=== PATIENT | male | born 1980 | race African-American/Black ===

== ENCOUNTER 2017-04-07 14:00 | Emergency (ER) | payer SELFPAY ==
[2017-04-07] MEDS ORDERED: Ondansetron HCl/PF 4 MG/2 ML Vial ONE (15:10)
[2017-04-07 15:19] LABS: Hemoglobin 16.9 g/dL (14.0-18.0); Mean Corpuscular HGB CONC 34.1 g/dL (32.0-36.0); Mean Corpuscular Hemoglobin 30.7 pg (27.0-31.0); Mean Corpuscular Volume 90.1 fl (80.0-94.0); Mean Platelet Volume 7.6 fL (7.4-10.4); Platelet Count 248 thou/uL (130-400); RBC Distribution Width 12.4 % (11.5-14.5); Red Blood Cell (RBC) Count 5.49 mill/uL (4.70-6.10); White Blood Cell (WBC) Count 21.3 thou/uL (4.8-10.8)
[2017-04-07 15:33] LABS: Band 12 % (5-11); Lymphocytes 6 % (21-51); MDiff Complete? YES; Monocytes 6 % (0-10); Neutrophil 72 % (42-75); PLT Morphology Comment Appears Adequate; RBC Morphology Normal; Reactive Lymphocytes 2 % (0-10); Vacuoles SLIGHT
[2017-04-07 15:39] LABS: ALT (SGPT) 9 U/L (8-55); AST (SGOT) 15 U/L (5-34); Albumin 4.2 g/dL (3.5-5.0); Alkaline Phosphatase 89 U/L (40-150); Anion Gap 14 mmol/L (10-20); BUN (Urea Nitrogen) 8 mg/dL (8.9-20.6); Bilirubin, Total 0.4 mg/dL (0.2-1.2); Calc. Creatinine Clearance 0 mL/min (70-130); Calcium 10.1 mg/dL (7.8-10.44); Carbon Dioxide 25 mmol/L (22-29); Chloride 100 mmol/L (98-107); Estimated GFR-MDRD 89; Globulin 4.4 g/dL (2.4-3.5); Glucose 119 mg/dL (70-105); Lipase 12 U/L (8-78); Protein, Total 8.6 g/dL (6.0-8.3); Sodium 135 mmol/L (136-145)
[2017-04-07 15:45] LABS: Bilirubin Negative (Negative); Blood, Urine Moderate (Negative); Clarity CLEAR (Clear); Glucose, Urine (Dipstick) Negative (Negative); Leukocyte Negative (Negative); Nitrite Negative (Negative); Protein, Urine (Dipstick) 100 mg/dL (Neg-Trace); Specific Gravity, Urine 1.019 (1.002-1.036); Urobilinogen 0.2 mg/dL (0.2-1.0); pH, Urine 5.5 (5.0-9.0)
[2017-04-07 15:48] LABS: Bacteria/HPF None Seen HPF (None Seen); Hyaline Casts/LPF 0-3 HYALINE CAST LPF (0-3 Hyaline); RBC/HPF 0-3 HPF (0-3); Squamous Epithelial 0-3 HPF (0-3); WBC/HPF 0-3 HPF (0-3)
== END 2017-04-07 18:20 | disposition home or self-care (01) ==
LOC: ERS 14:00
DX: E86.0 Dehydration (principal); R11.2 Nausea with vomiting, unspecified; R19.7 Diarrhea, unspecified; F17.210 Nicotine dependence, cigarettes, uncomplicated
CPT/HCPCS: 80053; 81003; 81015; 83690; 85025; 93005; 96361; 96372; 96374; J2405

== ENCOUNTER 2017-04-12 21:22 | Inpatient (IN) | payer SELFPAY ==
[~2017-04-12 21:22] MED LIST: ISOVUE-370 76%-LOCM 1 ML ONE; Iopamidol 370 76% 50 ML VIAL FS ONE
[2017-04-12] MEDS ORDERED: Ondansetron HCl/PF 4 MG/2 ML Vial ONE (21:59)
[2017-04-12 22:14] LABS: Hemoglobin 16.5 g/dL (14.0-18.0); Mean Corpuscular HGB CONC 34.7 g/dL (32.0-36.0); Mean Corpuscular Hemoglobin 30.8 pg (27.0-31.0); Mean Corpuscular Volume 88.8 fl (80.0-94.0); Mean Platelet Volume 7.3 fL (7.4-10.4); Platelet Count 296 thou/uL (130-400); RBC Distribution Width 12.6 % (11.5-14.5); Red Blood Cell (RBC) Count 5.36 mill/uL (4.70-6.10); White Blood Cell (WBC) Count 14.1 thou/uL (4.8-10.8)
--- NOTE | 2017-04-12 22:17 | RAD ---
FRONTAL VIEW CHEST SERIES 04/12/17 INDICATION: Fever. COMPARISON: 05/14/15. FINDINGS: The lungs are clear. There is no effusion or pneumothorax. The cardiac silhouette is within normal li mits in size for portable technique. IMPRESSION: No focal consolidation. POS: [facility]
[2017-04-12 22:22] LABS: ALT (SGPT) 15 U/L (8-55); AST (SGOT) 21 U/L (5-34); Albumin 4.1 g/dL (3.5-5.0); Alkaline Phosphatase 71 U/L (40-150); Anion Gap 11 mmol/L (10-20); BUN (Urea Nitrogen) 13 mg/dL (8.9-20.6); Bilirubin, Total 0.7 mg/dL (0.2-1.2); CK (CPK) 175 U/L (30-200); Calc. Creatinine Clearance 0 mL/min (70-130); Calcium 9.6 mg/dL (7.8-10.44); Carbon Dioxide 26 mmol/L (22-29); Chloride 98 mmol/L (98-107); Estimated GFR-MDRD 65; Globulin 4.4 g/dL (2.4-3.5); Glucose 114 mg/dL (70-105); Lipase 52 U/L (8-78); Potassium 3.2 mmol/L (3.5-5.1); Protein, Total 8.5 g/dL (6.0-8.3); Sodium 132 mmol/L (136-145)
[2017-04-12 22:26] LABS: Band 5 % (5-11); Lymphocytes 17 % (21-51); MDiff Complete? YES; Monocytes 26 % (0-10); Neutrophil 52 % (42-75)
[2017-04-12] MEDS ORDERED: Acetaminophen 500 MG TAB ONE ×2 (22:47→22:48)
[2017-04-12] MEDS ORDERED: Ibuprofen 800 MG TAB ONE (22:47)
[2017-04-12 23:24] LABS: Acetaminophen Less than 6.0 mcg/mL (10.0-30.0); Alcohol Less than 10 mg/dL (Less than 10); Salicylate Less than 8.0 mg/dL (15.0-30.0)
[2017-04-13 01:01] LABS: Bilirubin Negative (Negative); Blood, Urine Negative (Negative); Clarity CLEAR (Clear); Glucose, Urine (Dipstick) Negative (Negative); Leukocyte Negative (Negative); Nitrite Negative (Negative); Protein, Urine (Dipstick) Negative (Neg-Trace); Specific Gravity, Urine 1.025 (1.002-1.036); Urobilinogen 0.2 mg/dL (0.2-1.0); pH, Urine 5.5 (5.0-9.0)
[2017-04-13 01:12] LABS: Amphetamine Not Detected (NotDetected); Barbiturates Screen Not Detected (NotDetected); Benzodiazepine Screen Not Detected (NotDetected); Cocaine Metabolite Screen Detected (NotDetected); Medtox Control Line Valid? VALID (VALID); Medtox Reader # READER 4; Methadone Not Detected (NotDetected); Methamphetamine Not Detected (NotDetected); Opiate Screen Detected (NotDetected); Oxycodone Screen Not Detected (NotDetected); Phencyclidine (PCP) Detected (NotDetected); THC/Cannabinoid Screen Detected (NotDetected); Tricyclic Screen Not Detected (NotDetected)
[2017-04-13 02:05] VITALS: BMI 22.6
[2017-04-13] MEDS ORDERED: Sodium Chloride 0.9% 1,000 ML IV SCH ×2 (02:09→07:02)
[2017-04-13] MEDS ORDERED: Ondansetron HCl/PF 4 MG/2 ML Vial IVP PRN ×2 (02:09→07:02)
[2017-04-13] MEDS ORDERED: Acetaminophen 325 MG TAB PO PRN (02:09)
[2017-04-13] MEDS ORDERED: Ondansetron ODT 4 MG TAB SL PRN (02:09)
[2017-04-13] MEDS ORDERED: Artificial Tears 18 DROP/0.9 ML EA EYE PRN (07:02)
[2017-04-13] MEDS ORDERED: Eucerin (Mineral Oil/Petrolatum,White) 30 gm Jar TOP PRN (07:02)
[2017-04-13] MEDS ORDERED: hydrALAZINE 20 MG/ML VIAL SLOW IVP PRN (07:02)
[2017-04-13] MEDS ORDERED: Sodium Chloride 0.65% Nasal 44 ML BOT EA NARE PRN (07:02)
[2017-04-13] MEDS ORDERED: Chloraseptic Spray 180 ml Bottle PO PRN (07:02)
[2017-04-13] MEDS ORDERED: Zolpidem Tartrate 5 MG TAB PO PRN (07:02)
[2017-04-13] MEDS ORDERED: Mag-Al 1200 mg/1200 mg/30 ML UDCUP PO PRN (07:02)
[2017-04-13] MEDS ORDERED: Ondansetron ODT 4 MG TAB PO PRN (07:02)
[2017-04-13] MEDS ORDERED: Loratadine 10 MG TAB PO PRN (07:02)
[2017-04-13] MEDS ORDERED: Diabetic Tussin 200 MG/10 ML UDCUP PO PRN (07:02)
--- NOTE | 2017-04-13 07:30 | CT ---
ABDOMEN AND PELVIC CT WITH CONTRAST: INDICATION: Diarrhea for 1 week with fever, vomiting, and lower abdominal pain. FINDINGS: There is prominent distention of the urinary bladder. Correlate clinically. The colon is diffusely unopacified including the cecal apex. The appendix is difficult to reliably visualize. The contrast -opacified small bowel appears physiologically distended. No definite acute abnormality of the solid abdominal organs. No disseminated free air. There is mild vascular calcification. No consolidatio n or effusion at the lung base. Osseous structures are intact. IMPRESSION: Limited evaluation of the appendix as discussed above due to unopacified bowel from this region as we ll as prominent mass effect from markedly distended urinary bladder. Clinical correlation is, theref ore, essential. If necessary imaging followup may be obtained. POS: [facility]
[2017-04-13 07:48] LABS: Free T4 (Free Thyroxine) 0.95 ng/dL (0.70-1.48)
[2017-04-13] MEDS: Famotidine 20 MG TAB PO SCH ×2 (08:33→20:06)
[2017-04-13] MEDS: Loperamide HCl 2 MG CAP PO PRN ×2 (08:33→16:19)
[2017-04-13] MEDS: Enoxaparin Sodium 40 MG/0.4 ML SYRINGE SC SCH (08:34)
[2017-04-13] MEDS: D5 1/2 NS w/20 mEq KCL 1,000 ML IV SCH ×3 (08:35→19:47)
[2017-04-13] MEDS ORDERED: FLU VACC QS2017-18 36 mo. & older 0.5 ML SYRINGE IM ONE (09:00)
[2017-04-13] MEDS ORDERED: Morphine 5 MG/ML SYRINGE SLOW IVP PRN (10:14)
--- NOTE | 2017-04-13 12:02 | HP ---
PRIMARY CARE PHYSICIAN: [facility] call admission. REASON FOR ADMISSION: Acute gastroenteritis, acute kidney failure, sepsis, acute urinary retention. HISTORY OF PRESENT ILLNESS: A 36-year-old -[place] male, who came to emergency room for eval uation of nausea, vomiting, and diarrhea for about 1 week. He was also complaining of lower abdomina l pain. The patient was also having difficulty urination. He had several diarrhea, which was liquid y, without any pus or blood. He was feeling weak, dizzy, and tired. He was also having high-grade f ever. He denies any chills or rigor. He denies any flu-like symptoms. He denies any hematochezia o r melena. He denies any hematemesis. He denies any cough, shortness of breath, chest pain, palpitat ion. In the emergency room, he was tachycardic. He was having a temperature maximum 106.6 rectally and he was saturating normal. Routine blood tests showed acute kidney failure, leukocytosis with bandemia. He was also found with acute kidney failure and his urine drug screen was positive for cocaine, cannabinoids, phencyclidine, and opiates. Serum drug screen was unremarkable. This patient was admitted to telemetry floor, his fever subsided in the morning, but he was not able to pee. He was also having lower abdominal discomfort, and when we did a bladder scan, he had signif icant amount of urine in his bladder, and after doing in and out catheter, almost 1.4 liter urine cam e out. The patient also had CT of the abdomen and pelvis, which was unremarkable other than bladder distention. Chest x-ray was also unremarkable. Stool study was obtained and that came back positive for Clostrid ium difficile antigen positive and cryptosporidium positive. Patient was admitted for further evalua tion and treatment. ALLERGIES: No known drug allergies. CURRENT HOME MEDICATIONS: Bentyl 10 mg 4 times daily p.r.n., Zofran 4 mg q.6 hourly p.r.n. REVIEW OF SYSTEMS: The following complete review of systems was negative, unless otherwise mentioned in the HPI or below: Constitutional: Weight loss or gain, ability to conduct usual activities. Sk in: Rash, itching. Eyes: Double vision, pain. ENT/Mouth: Nose bleeding, neck stiffness, pain, te nderness. Cardiovascular: Palpitations, dyspnea on exertion, orthopnea. Respiratory: Shortness of breath, wheezing, cough, hemoptysis, fever, or night sweats. Gastrointestinal: Poor appetite, abdo gisella pain, heartburn, nausea, vomiting, constipation, or diarrhea. Genitourinary: Urgency, frequen cy, dysuria, nocturia. Musculoskeletal: Pain, swelling. Neurologic/Psychiatric: Anxiety, depressi on. Allergy/Immunologic: Skin rash, bleeding tendency. Please see my HPI for pertinent positives a nd negatives. All other review of systems reviewed and negative except as mentioned in the HPI. PAST MEDICAL HISTORY: Patient denies any previous medical history. PAST SURGICAL HISTORY: Left ankle and left hand surgery. PAST PSYCHIATRIC HISTORY: Reviewed and negative. SOCIAL HISTORY: Patient drinks alcohol every week. He smokes about half-pack per day. He also abus es cocaine, marijuana, phencyclidine periodically. FAMILY HISTORY: No strong family history of premature coronary artery disease, stroke, or cancer. EMERGENCY ROOM COURSE: Patient is given 3 liters of IV fluids, Motrin 800 mg, Tylenol 1 gram, morphi ne 4 mg, and Zofran 4 mg. PHYSICAL EXAMINATION: VITAL SIGNS: On arrival, blood pressure 97/54, pulse 135, respiratory rate 20, temperature 106.6 rec tally, saturation 97% on room air, weight 68 kilograms. GENERAL: The patient is currently afebrile, in mild distress due to abdominal pain, diarrhea, tachyc ardic. HEENT: Head normocephalic, atraumatic. Eyes: Pupils round and reactive to light. Extraocular musc les intact. ENT: Oropharynx within normal limits. Dry mucous membranes, no oral lesions, no pharyn geal erythema, no exudate. NECK: Supple, no JVD, no thyromegaly, no carotid bruit. No lymph nodes, no meningeal signs of irrit ation. LUNGS: Clear to auscultation without any rhonchi or rales. CARDIAC: S1, S2 regular, tachycardia, no murmur, no gallop, no rub. ABDOMEN: Diffusely tender, predominantly in the lower abdomen, and bladder palpable. No organomegal y, no mass, no peritoneal sign, and abdominal sounds present. BACK EXAMINATION: Unremarkable, no CVA tenderness. EXTREMITIES: Upper extremities, passive movement of all joints are normal. Lower extremities, no ed zuleika. Good peripheral pulsation. SKIN: Patient has multiple tattoos, but no rash. PSYCHIATRIC: Normal affect. HEMATOLOGICAL SYSTEM: No lymphadenopathy. NEUROLOGIC: Nonfocal examination. The patient moves all 4 limbs. Plantar bilateral flexor. SIGNIFICANT LABORATORY DATA: EKG showing sinus tachycardia, LVH, left atrial enlargement. Chest x-r ay, based on my review, no acute cardiopulmonary process. CT of the abdomen and pelvis with contrast showed a distended urinary bladder. CBC: WBC 14.1, hemoglobin 16.5, platelet 296 with bandemia. BMP: Sodium 132, potassium 3.2, chlori de 98, carbon dioxide 26, anion gap 11, BUN 13, creatinine 1.47, glucose 114, calcium 9.6. Lactic ac id 1.4. LFT: AST 21, ALT 15, alkaline phosphatase 71, albumin 4.1, lipase 52. TSH 0.2110, free T3 1.15, free T4 of 0.95. Urinalysis normal. Urine drug screen positive for opiates, phencyclidine, co erin, and marijuana. Serum drug screen unremarkable. Chest x-ray, based on my review, no acute car diopulmonary process. ASSESSMENT AND PLAN: 1. Sepsis, source of infection is likely enteritis and as per stool study, patient has Cryptosporidi um positive and Clostridium difficile antigen positive. We will target to treat both problem with or al nitazoxanide and Flagyl 500 mg IV q.8 hourly. The patient will be given IV fluids with dextrose NS with KCl 800 mL per hour. 2. Acute kidney failure. The patient is dehydrated. The patient has a significant amount of diarrh ea that is contributing to his diarrhea. The patient will be given IV fluid and will repeat BMP jovanni rrow. We will avoid nephrotoxin agents. 3. Hyponatremia and hypokalemia. Patient will be given IV fluid with potassium and we will repeat B MP tomorrow. 4. CQ thyroid syndrome. Patient has low TSH and low free T3, but T4 is normal. Most likely this is sick euthyroid syndrome. Patient will need repeat testing after improvement from current condition. 5. Acute urinary retention. The patient was refusing Pickens catheterization and that is why we did i n and out catheter and 1.4 liter urine came out. We will monitor for any further urinary retention. If that does happen, then we will consult Urology and was put a Pickens catheter in. 6. Polysubstance abuse. Patient is given counseling to avoid smoking as well as to avoid alcohol ab use and other illicit drug abuse. Patient will be monitored on telemetry floor. 7. Cryptosporidium diarrhea. We will start nitazoxanide 500 mg p.o. b.i.d. 8. Clostridium difficile diarrhea. We will start Flagyl 500 mg IV q.8 hourly and Florastor 250 mg p .o. b.i.d. 9. Dehydration. Patient will be given IV fluid as ordered. 10. Pain control. We will use morphine p.r.n. basis for pain control. 11. Protein-calorie malnutrition, mild. We will check hepatitis profile and HIV to rule out any und erlying opportunistic infections. 12. Deep vein thrombosis prophylaxis. Lovenox 40 mg subcutaneously daily. 13. Gastrointestinal prophylaxis. Pepcid 20 mg p.o. b.i.d. 14. Code status: The patient is FULL CODE. Patient does not have a surrogate decision maker. He i s making decision by himself. Disposition and plan based on clinical course. We are expecting patient's stay in hospital more than 2 midnights. Plan of care discussed with the patient in detail.
[2017-04-13] MEDS: metroNIDAZOLE 500 MG in Premix Bag 1 BAG IVPB SCH ×2 (13:44→21:34)
[2017-04-13] MEDS: Acetaminophen 325 MG TAB PO PRN (13:52)
[2017-04-13] MEDS: HYDROcodone/Acetaminophen 5/325 mg Tablet PO PRN (20:09)
[2017-04-14] MEDS: HYDROcodone/Acetaminophen 5/325 mg Tablet PO PRN ×2 (02:14→17:48)
[2017-04-14] MEDS: D5 1/2 NS w/20 mEq KCL 1,000 ML IV SCH (02:20)
[2017-04-14] MEDS: metroNIDAZOLE 500 MG in Premix Bag 1 BAG IVPB SCH ×3 (05:09→22:07)
[2017-04-14 06:08] LABS: HBCM Index 0.06 S/CO (0-0.79); HBSAg Index 0.13 S/CO (0-0.99); Hep A IgM AB Non-Reactive (NonReactive); Hep A IgM S/CO 0.08 S/CO (0-0.79); Hep B Surf Ag Non-Reactive S/CO (NonReactive); Hep C IgG Ab Non-Reactive (NonReactive); Hep C Index 0.14 S/CO (0-0.79); Hepatitis B Core IGM Abs Non-Reactive (NonReactive)
[2017-04-14 06:10] LABS: Eosinophils 2 % (0-10); Hemoglobin 13.2 g/dL (14.0-18.0); Lymphocytes 35 % (21-51); MDiff Complete? YES; Mean Corpuscular HGB CONC 34.7 g/dL (32.0-36.0); Mean Corpuscular Hemoglobin 31.3 pg (27.0-31.0); Mean Corpuscular Volume 90.2 fl (80.0-94.0); Mean Platelet Volume 7.5 fL (7.4-10.4); Monocytes 28 % (0-10); Neutrophil 29 % (42-75); Platelet Count 237 thou/uL (130-400); RBC Distribution Width 12.5 % (11.5-14.5); Reactive Lymphocytes 6 % (0-10); White Blood Cell (WBC) Count 7.7 thou/uL (4.8-10.8)
[2017-04-14 06:31] LABS: ALT (SGPT) 13 U/L (8-55); AST (SGOT) 20 U/L (5-34); Albumin 3.2 g/dL (3.5-5.0); Alkaline Phosphatase 45 U/L (40-150); Anion Gap 8 mmol/L (10-20); BUN (Urea Nitrogen) 7 mg/dL (8.9-20.6); Bilirubin, Total 0.7 mg/dL (0.2-1.2); Calc. Creatinine Clearance 92 mL/min (70-130); Calcium 8.4 mg/dL (7.8-10.44); Carbon Dioxide 25 mmol/L (22-29); Chloride 106 mmol/L (98-107); Estimated GFR-MDRD Greater than 90; Globulin 2.9 g/dL (2.4-3.5); Glucose 103 mg/dL (70-105); Potassium 3.6 mmol/L (3.5-5.1); Protein, Total 6.1 g/dL (6.0-8.3); Sodium 135 mmol/L (136-145)
--- NOTE | 2017-04-14 09:26 | PDOC.PN ---
- Subjective Encounter Start Date: 04/14/17 Encounter Start Time: 08:00 -: old records requested/rev today feels better, last fever was yesterday evening, less diarrhoea, no abdominal pain, now able to void by himself. - Objective Resuscitation Status: Resuscitation Status FULL:Full Resuscitation MAR Reviewed: Yes Vital Signs & Weight: Vital Signs (12 hours) Temp Pulse Resp BP Pulse Ox 04/14/17 08:00 98.8 F 80 18 112/73 98 04/14/17 04:00 98.5 F 88 20 116/74 98 04/13/17 21:34 99.4 F Weight Admit Weight 148 lb 9.6 oz Weight 148 lb 9.6 oz I&O: 04/13/17 04/14/17 04/15/17 06:59 06:59 06:59 Intake Total 332 4617 Output Total 150 3800 Balance 182 817 Result Diagrams: 04/14/17 04:39 04/14/17 04:39 EKG Reviewed by me: Yes (nsr) Phys Exam - Physical Examination Constitutional: NAD HEENT: PERRLA, moist MMs, sclera anicteric Neck: no JVD, supple Respiratory: no wheezing, no rales, no rhonchi Cardiovascular: RRR, no significant murmur, no rub Gastrointestinal: soft, non-tender, no distention, positive bowel sounds Musculoskeletal: no edema, pulses present Neurological: non-focal, normal sensation, moves all 4 limbs Psychiatric: normal affect, A&O x 3 Skin: no rash, normal turgor Dx/Plan (1) Acute febrile illness Code(s): R50.9 - FEVER, UNSPECIFIED Status: Acute (2) Acute kidney failure Status: Resolved (3) Acute urinary retention Code(s): R33.8 - OTHER RETENTION OF URINE Status: Resolved (4) C. difficile diarrhea Code(s): A04.72 - ENTEROCOLITIS D/T CLOSTRIDIUM DIFFICILE, NOT SPCF RECUR Status: Acute (5) Cryptosporidial gastroenteritis Code(s): A07.2 - CRYPTOSPORIDIOSIS Status: Acute (6) Dehydration Code(s): E86.0 - DEHYDRATION Status: Resolved (7) Hypokalemia Code(s): E87.6 - HYPOKALEMIA Status: Resolved (8) Hyponatremia Code(s): E87.1 - HYPO-OSMOLALITY AND HYPONATREMIA Status: Resolved (9) Polysubstance abuse Code(s): F19.10 - OTHER PSYCHOACTIVE SUBSTANCE ABUSE, UNCOMPLICATED Status: Acute (10) Sepsis Code(s): A41.9 - SEPSIS, UNSPECIFIED ORGANISM Status: Acute - Plan cont current plan of care, plan discussed w/ family, continue antibiotics * DC IVF * continue Nitazoxanide and IV flagyl * DC Tele * Transfer to medical * medication reviewed as below * symptomatic treatment. * if afebrile for another 24 hours, then will consider discharge * stable and improving Review of Systems - Review of Systems Constitutional: negative: fever, chills, sweats, weakness, malaise, other ENT: negative: Ear Pain, Ear Discharge, Nose Pain, Nose Discharge, Nose Congestion, Mouth Pain, Mouth Swelling, Throat Pain, Throat Swelling, Other Respiratory: negative: Cough, Dry, Shortness of Breath, Hemoptysis, SOB with Excertion, Pleuritic Pain, Sputum, Wheezing Cardiovascular: negative: chest pain, palpitations, orthopnea, paroxysmal nocturnal dyspnea, edema, light headedness, other Gastrointestinal: negative: Nausea, Vomiting, Abdominal Pain, Diarrhea, Constipation, Melena, Hematochezia, Other Genitourinary: negative: Dysuria, Frequency, Incontinence, Hematuria, Retention , Other Musculoskeletal: negative: Neck Pain, Shoulder Pain, Arm Pain, Back Pain, Hand Pain, Leg Pain, Foot Pain, Other Skin: negative: Rash, Lesions, Guillermo, Bruising, Other - Medications/Allergies Allergies/Adverse Reactions: Allergies Allergy/AdvReac Type Severity Reaction Status Date / Time No Known Drug Allergies Allergy Verified 04/13/17 02:10 Medications: Current Medications Acetaminophen (Tylenol) 650 mg PO Q4H PRN PRN Reason: Headache/Fever or Pain Last Admin: 04/13/17 13:52 Dose: 650 mg Hydrocodone Bitart/Acetaminophen ([place] 5/325) 1 tab PO Q4H PRN PRN Reason: Moderate Pain (4-6) Last Admin: 04/14/17 02:14 Dose: 1 tab Al Hydroxide/Mg Hydroxide (Maalox) 30 ml PO Q6H PRN PRN Reason: Heartburn or Indigestion Artificial Tears (Tears Naturale) 0 drop EA EYE PRN PRN PRN Reason: Dry Eyes Enoxaparin Sodium (Lovenox) 40 mg SC 0900 [facility] Last Admin: 04/13/17 08:34 Dose: 40 mg Famotidine (Pepcid) 20 mg PO BID [facility] Last Admin: 04/13/17 20:06 Dose: 20 mg Guaifenesin (Robitussin Sf) 200 mg PO Q4H PRN PRN Reason: Cough Hydralazine HCl (Apresoline) 10 mg SLOW IVP Q4H PRN PRN Reason: Systolic BP > 180 Metronidazole 500 mg/ Device 100 mls @ 100 mls/hr IVPB Q8HR [facility] Last Admin: 04/14/17 05:09 Dose: 100 mls Loperamide HCl (Imodium) 2 mg PO PRN PRN PRN Reason: Diarrhea/Loose Stools Last Admin: 04/13/17 16:19 Dose: 2 mg Loratadine (Claritin) 10 mg PO DAILYPRN PRN PRN Reason: Sinus Symptoms Mineral Oil/White Petrolatum (Eucerin Cream) 0 gm TOP BIDPRN PRN PRN Reason: Dry Skin Morphine Sulfate (Morphine) 2 mg SLOW IVP Q4H PRN PRN Reason: Pain Nitazoxanide (Alinia) 500 mg PO BID [facility] Last Admin: 04/13/17 20:06 Dose: 500 mg Ondansetron HCl (Zofran Odt) 4 mg PO Q6H PRN PRN Reason: Nausea/Vomiting Last Admin: 04/13/17 08:33 Dose: 4 mg Ondansetron HCl (Zofran) 4 mg IVP Q6H PRN PRN Reason: Nausea/Vomiting Phenol (Chloraseptic [place] 180 Ml Bot) 0 ml PO PRN PRN PRN Reason: Sore Throat Sodium Chloride ([place] Nasal [place] 0.65%) 0 ml EA NARE QIDPRN PRN PRN Reason: Nasal Congestion Sodium Chloride (Flush - Normal Saline) 10 ml IVF Q12HR [facility] Last Admin: 04/13/17 20:07 Dose: Not Given Sodium Chloride (Flush - Normal Saline) 10 ml IVF PRN PRN PRN Reason: Saline Flush Zolpidem Tartrate (Ambien) 5 mg PO HSPRN PRN PRN Reason: Insomnia
[2017-04-14] MEDS: Enoxaparin Sodium 40 MG/0.4 ML SYRINGE SC SCH (11:10)
[2017-04-14] MEDS: Famotidine 20 MG TAB PO SCH ×2 (11:11→22:08)
[2017-04-14] MEDS: Acetaminophen 325 MG TAB PO PRN (12:04)
[2017-04-15 03:50] VITALS: BP 126/58; TEMP 98.4
[2017-04-15] MEDS: metroNIDAZOLE 500 MG in Premix Bag 1 BAG IVPB SCH (05:14)
[2017-04-15 06:24] LABS: HIV (1/2) Antibody/Antigen Non-Reactive (NonReactive)
--- NOTE | 2017-04-15 12:41 | DIS ---
DATE OF ADMISSION: 04/12/2017 DATE OF DISCHARGE: 04/15/2017 PRIMARY CARE PHYSICIAN: [facility] call admission. DISCHARGE DISPOSITION: Home. PRIMARY DISCHARGE DIAGNOSES: Acute febrile illness, Clostridium difficile diarrhea, cryptosporidium gastroenteritis, acute kidney failure, acute urinary retention, sepsis, dehydration, hypokalemia, hyp onatremia. SECONDARY DISCHARGE DIAGNOSES: Polysubstance abuse. PRIMARY PROCEDURE/OPERATION: None. RADIOLOGICAL INVESTIGATION: Abdomen and pelvis CT scan showed bladder distention. Chest x-ray lico l. SIGNIFICANT LABORATORY DATA: WBC 7.7, hemoglobin 13.2, platelets 237. Sodium 135, potassium 3.6, BU N 7, creatinine 1.05, calcium 8.4. LFT normal. Urine drug screen positive for opiates, phencyclidin e, cocaine, cannabinoids. Serum drug screen normal. Stool for infection study showed cryptosporidiu m positive, C. diff antigen positive. Blood culture negative, influenza negative. DISCHARGE MEDICATIONS: Flagyl 500 mg p.o. t.i.d. for 7 days, Bentyl 20 mg p.o. q.i.d. p.r.n., nitazo xanide 500 mg p.o. b.i.d. for 3 more days, Zofran 8 mg q.6 hourly p.r.n. CONTRAINDICATIONS: None. CODE STATUS: FULL CODE. INPATIENT CONSULTANTS: None. ALLERGIES: No known drug allergy. DISCHARGE PLAN: Post hospital, the patient is discharged to home. Subsequently, the patient will fo llow up with primary care physician. HOSPITAL COURSE: A 36-year-old male who was admitted for acute febrile illness. He was having very high grade fever. He was found with acute kidney failure and dehydration. His flu screen is negativ e. His chest x-ray was normal. He had positive urine drug screen for multiple illicit drugs. His h epatitis profile and HIV negative. He was hydrated with IV fluid. While in hospital, he required 1 time Pickens catheterization for acute urinary retention and then subsequently his retention resolved. His urinalysis was normal. He remained afebrile for almost more than 4 to 8 hours. Now, the patien t is stable for discharge today. The patient is seen and examined at bedside today. PHYSICAL EXAMINATION: VITAL SIGNS: Currently, temperature 98.4, pulse 93, respiratory rate 18, saturation 97%, blood press ure 126/58, weight 144 pounds. GENERAL: The patient is currently alert, oriented, no acute distress. HEAD: Normocephalic, atraumatic. EYES: Pupils round, reactive to light. Extraocular muscle intact. ENT: Oropharynx within normal limits. Moist mucous membranes. No oral lesions. No pharyngeal eryt ricarda. No exudate. NECK: Supple, no JVD, no thyromegaly, no carotid bruit. No jugular venous distention. LUNGS: Clear to auscultation without any rhonchi or rales. CARDIAC: S1, S2 regular without any murmur. ABDOMEN: Soft and benign. EXTREMITIES: No edema. NEUROLOGIC: Nonfocal examination. While in hospital, we provided counseling to avoid illicit drug abuse. The patient is medically stab le for discharge. All new medication prescriptions sent to his pharmacy.
--- NOTE | 2017-04-20 17:46 | EKG ---
Test Reason : Blood Pressure : / mmHG Vent. Rate : 127 BPM Atrial Rate : 127 BPM P-R Int : 122 ms QRS Dur : 090 ms QT Int : 276 ms P-R-T Axes : 077 079 019 degrees QTc Int : 401 ms Sinus tachycardia Possible Left atrial enlargement Left ventricular hypertrophy Abnormal ECG Confirmed by MANDEEP MOTA, SINGH ([id number]), editorial writer REBECCA MCBRIDE ([id number]) on 04/20/2017 5:45:58 PM Referred By: MANDEEP Confirmed By:SINGH KAUFMAN MD
== END 2017-04-15 07:51 | disposition home or self-care (01) | DRG 872 ==
LOC: ERS 21:22 → 2NO 23:50
PROVIDERS: ADMIT Internal Medicine Infectious Disease; ATTEND Internal Medicine Infectious Disease
DX: A41.9 Sepsis, unspecified organism (principal); N17.9 Acute kidney failure, unspecified; A07.2 Cryptosporidiosis; A04.72 Enterocolitis due to Clostridium difficile, not specified as recurrent; E87.1 Hypo-osmolality and hyponatremia; E44.1 Mild protein-calorie malnutrition; F19.90 Other psychoactive substance use, unspecified, uncomplicated; F12.90 Cannabis use, unspecified, uncomplicated; F11.90 Opioid use, unspecified, uncomplicated; F17.210 Nicotine dependence, cigarettes, uncomplicated; E86.0 Dehydration; Z68.22 Body mass index [BMI] 22.0-22.9, adult; E87.6 Hypokalemia
CPT/HCPCS: 36415; 71045; 74177; 80053; 80074; 80306; 80307; 81003; 82550; 83605; 83690; 84439; 84443; 84481; 85025; 87040; 87045; 87046; 87324; 87328; 87329; 87389; 87449; 87493; 87804; 87899; 93005; 96361; 96374; 96375; 99406; A4216; J1650; J2270; J2405; Q0162

== ENCOUNTER 2017-08-16 04:04 | Emergency (ER) | payer SELFPAY ==
[2017-08-16] MEDS ORDERED: Lidocaine 1% w/Epinephrine 1:100K 20 ML VIAL ONE (04:20)
[2017-08-16] MEDS ORDERED: Lorazepam 2 MG/ML VIAL ONE (04:20)
[2017-08-16] MEDS ORDERED: Adacel (T-DAP) 0.5 ML VIAL ONE (04:58)
--- NOTE | 2017-08-16 07:54 | RAD ---
SINGLE VIEW OF THE FOREARM: COMPARISON: None. HISTORY: Trauma to the right forearm with multiple lacerations. FINDINGS: A single view of the right forearm shows multiple skin darcie overlying the laceration sites. No ra diopaque foreign body is seen within the soft tissues of the forearm. Superficial restraints are see n on the patient near the wrist. IMPRESSION: No radiopaque foreign body or acute osseous abnormality. POS: [facility]
== END 2017-08-16 05:25 | disposition home or self-care (01) ==
LOC: ERS 04:04
DX: S51.812A Laceration without foreign body of left forearm, initial encounter (principal); F17.210 Nicotine dependence, cigarettes, uncomplicated; Y33.XXXA Other specified events, undetermined intent, initial encounter
CPT/HCPCS: 12034; 90471; 90715; 96372; J2001; J2060

== ENCOUNTER 2017-08-23 16:26 | Emergency (ER) | payer SELFPAY ==
[2017-08-23 18:29] LABS: #Basophils 0.1 thou/uL (0.0-0.2); #Eosinphils 0.1 thou/uL (0.0-0.7); #Lymphocytes 2.2 thou/uL (1.20-3.40); #Monocytes 0.7 thou/uL (0.11-0.59); #Neutrophils 7.6 thou/uL (1.40-6.50); %Basophils 0.6 % (0.0-1.0); %Eosinophils 0.6 % (0.0-10.0); %Lymphocytes 20.8 % (21.0-51.0); %Monocytes 6.9 % (0.0-10.0); %Neutrophils 71.1 % (42.0-75.0); Hemoglobin 13.7 g/dL (14.0-18.0); Mean Corpuscular HGB CONC 35.2 g/dL (32.0-36.0); Mean Corpuscular Volume 91.1 fL (78.0-98.0); Mean Platelet Volume 7.3 fL (7.4-10.4); Platelet Count 312 thou/uL (130-400); RBC Distribution Width 12.7 % (11.5-14.5); Red Blood Cell (RBC) Count 4.28 mill/uL (4.70-6.10); White Blood Cell (WBC) Count 10.8 thou/uL (4.8-10.8)
[2017-08-23 18:50] LABS: ALT (SGPT) 10 U/L (8-55); AST (SGOT) 18 U/L (5-34); Albumin 4.3 g/dL (3.5-5.0); Alkaline Phosphatase 89 U/L (40-150); Anion Gap 13 mmol/L (10-20); BUN (Urea Nitrogen) 11 mg/dL (8.9-20.6); Bilirubin, Total 0.5 mg/dL (0.2-1.2); Calc. Creatinine Clearance 0 mL/min (70-130); Calcium 9.5 mg/dL (7.8-10.44); Carbon Dioxide 23 mmol/L (22-29); Chloride 106 mmol/L (98-107); Estimated GFR-MDRD Greater than 90; Globulin 3.4 g/dL (2.4-3.5); Glucose 71 mg/dL (70-105); Potassium 4.1 mmol/L (3.5-5.1); Protein, Total 7.7 g/dL (6.0-8.3); Sodium 138 mmol/L (136-145)
[2017-08-23] MEDS ORDERED: Ibuprofen 200 MG TAB ONE (20:10)
== END 2017-08-23 21:45 | disposition home or self-care (01) ==
LOC: ERS 16:26
DX: S51.811D Laceration without foreign body of right forearm, subsequent encounter (principal); S51.011D Laceration without foreign body of right elbow, subsequent encounter; F17.210 Nicotine dependence, cigarettes, uncomplicated; Y33.XXXD Other specified events, undetermined intent, subsequent encounter
CPT/HCPCS: 36415; 80053; 85025; 87040; 99283

== ENCOUNTER 2017-09-05 14:04 | Emergency (ER) | payer SELFPAY | END 2017-09-05 14:55 | disposition home or self-care (01) | LOC: ERS 14:04 | DX: S51.011D Laceration without foreign body of right elbow, subsequent encounter (principal) ==

== ENCOUNTER 2018-02-14 10:18 | Emergency (ER) | payer SELFPAY ==
--- NOTE | 2018-02-14 11:29 | RAD ---
LEFT HAND 3 VIEWS: HISTORY: Pain and swelling. COMPARISON: None. FINDINGS: No acute fracture or malalignment. The soft tissues are unremarkable. IMPRESSION: No acute displaced fracture or malalignment. POS: [facility]
== END 2018-02-14 12:00 | disposition home or self-care (01) ==
LOC: ERS 10:18
DX: L30.1 Dyshidrosis [pompholyx] (principal); F17.210 Nicotine dependence, cigarettes, uncomplicated

== ENCOUNTER 2019-08-09 09:21 | Inpatient (IN) | payer SELFPAY ==
--- NOTE | 2019-08-09 09:52 | CT ---
Exam: Head CT without contrast HISTORY: Level 1 stroke. Left-sided facial numbness. COMPARISON: 05/14/2015 FINDINGS: Hemorrhage: No intraparenchymal hemorrhage or extra-axial hematoma. Brain parenchyma: Cortical morealnd-white matter differentiation is preserved. No mass effect or midline shift. Basilar cisterns are patent. Ventricular system: Ventricles and sulci are patent and symmetric. Calvarium: Intact. Sinuses and mastoid air cells: Adequate aeration. IMPRESSION: No acute intracranial process. Results study discussed with Dr. Mckay is 2019 at 9:49 AM Code CR
[2019-08-09 09:58] LABS: INR-International Normal Ratio 0.9; PTT 31.2 sec (22.9-36.1); Prothrombin Time 12.5 sec (12.0-14.7)
[2019-08-09 10:06] LABS: Acetaminophen Less than 6.0 mcg/mL (10.0-30.0); Alcohol Less than 10 mg/dL (Less than 10); Salicylate Less than 8.0 mg/dL (15.0-30.0)
[2019-08-09 10:08] LABS: Bilirubin Negative (Negative); Blood, Urine Negative (Negative); Clarity Clear (Clear); Glucose, Urine (Dipstick) Normal (Negative); Leukocyte Negative Leu/uL (Negative); Nitrite Negative (Negative); Protein, Urine (Dipstick) Negative (Neg-Trace); Urobilinogen Normal mg/dL (Less than 2)
[2019-08-09 10:08] LABS: ALT (SGPT) 13 U/L (8-55); AST (SGOT) 19 U/L (5-34); Albumin 3.9 g/dL (3.5-5.0); Alkaline Phosphatase 75 U/L (40-110); Anion Gap 10 mmol/L (10-20); BUN (Urea Nitrogen) 11 mg/dL (8.9-20.6); Bilirubin, Total 0.6 mg/dL (0.2-1.2); Calc. Creatinine Clearance 0 mL/min (70-130); Calcium 8.8 mg/dL (7.8-10.44); Carbon Dioxide 24 mmol/L (22-29); Chloride 106 mmol/L (98-107); Estimated GFR-MDRD Greater than 90; Globulin 2.9 g/dL (2.4-3.5); Glucose 85 mg/dL (70-105); Lipase 23 U/L (8-78); Potassium 3.9 mmol/L (3.5-5.1); Protein, Total 6.8 g/dL (6.0-8.3); Sodium 136 mmol/L (136-145)
[2019-08-09 10:11] LABS: #Basophils 0.1 thou/uL (0.0-0.2); #Eosinphils 0.3 thou/uL (0.0-0.7); #Lymphocytes 2.6 thou/uL (1.20-3.40); #Monocytes 0.9 thou/uL (0.11-0.59); %Basophils 1.3 % (0.0-1.0); %Eosinophils 3.9 % (0.0-10.0); %Lymphocytes 33.2 % (21.0-51.0); %Monocytes 11.4 % (0.0-10.0); %Neutrophils 50.2 % (42.0-75.0); Hemoglobin 14.8 g/dL (14.0-18.0); Mean Corpuscular HGB CONC 33.7 g/dL (32.0-36.0); Mean Corpuscular Hemoglobin 31.3 pg (27.0-31.0); Mean Corpuscular Volume 92.7 fL (78.0-98.0); Mean Platelet Volume 7.8 fL (7.4-10.4); Platelet Count 240 thou/uL (130-400); RBC Distribution Width 12.6 % (11.5-14.5); Red Blood Cell (RBC) Count 4.73 mill/uL (4.70-6.10); White Blood Cell (WBC) Count 7.9 thou/uL (4.8-10.8)
--- NOTE | 2019-08-09 10:16 | RAD ---
Exam: Chest one view HISTORY:Level 1 stroke. Facial numbness. Comparison: 04/12/2017 FINDINGS: Cardiac silhouette: Normal Aorta: Unremarkable Pulmonary vessels: Normal Costophrenic angles: Clear LUNGS: No masses or consolidation. Pneumothorax: None Osseous abnormalities: None IMPRESSION: No acute cardiopulmonary process.
[2019-08-09 10:21] LABS: Medtox Reader # READER 4
[2019-08-09 10:22] LABS: Amphetamine Not Detected (NotDetected); Barbiturates Screen Not Detected (NotDetected); Benzodiazepine Screen Not Detected (NotDetected); Cocaine Metabolite Screen Detected (NotDetected); Medtox Control Line Valid? VALID (VALID); Methadone Not Detected (NotDetected); Methamphetamine Not Detected (NotDetected); Opiate Screen Not Detected (NotDetected); Oxycodone Screen Not Detected (NotDetected); Phencyclidine (PCP) Detected (NotDetected); THC/Cannabinoid Screen Detected (NotDetected); Tricyclic Screen Not Detected (NotDetected)
[2019-08-09] MEDS ORDERED: hydrALAZINE 20 MG/ML VIAL SLOW IVP PRN (12:15)
[2019-08-09] MEDS ORDERED: Ondansetron PF 4 MG/2 ML Vial IVP PRN (12:15)
[2019-08-09] MEDS ORDERED: Iopamidol-370 76% 500 ML 1 ML ONE (13:30)
[2019-08-09 13:47] VITALS: BMI 22.1
[2019-08-09] MEDS: Nicotine 21 MG PATCH TD SCH (14:08)
[2019-08-09] MEDS: Sodium Chloride 0.9% 1,000 ML IV SCH (18:37)
--- NOTE | 2019-08-09 19:06 | HP ---
PRIMARY CARE PROVIDER: None. CHIEF COMPLAINT: Chest pain. HISTORY OF PRESENT ILLNESS: Mr. Conner is a pleasant 39-year-old gentleman, who was seen at [facility] on August 09, 2019. He reports that over the last few days he has had left-sided chest pain. He reports that it is sharp and radiates to the jaw, but is unable to characterize it further. He also reports using cocaine, PCP and marijuana. He also reports that over the last 2 days he has had left-sided facial numbness and difficulty speaking. In the emergency room, he does have significant expressive aphasia. REVIEW OF SYSTEMS: All systems were reviewed and found to be negative except for the pertinent positives mentioned above. PAST MEDICAL HISTORY: None. PAST SURGICAL HISTORY: Left ankle surgery and left hand surgery. SOCIAL HISTORY: The patient smokes one pack of cigarettes a day. He drinks 2 to 3 beers a day. He reports cocaine, PCP and marijuana use. FAMILY HISTORY: The patient denies any family history of premature coronary artery disease. ALLERGIES: NO KNOWN DRUG ALLERGIES. CURRENT MEDICATIONS: None. PHYSICAL EXAMINATION: GENERAL: On examination, Mr. Conner is awake and alert, not in acute distress. VITAL SIGNS: Blood pressure is 121/93, pulse 75, respiratory rate 16, and oxygen saturation 100% on room air. He is afebrile. EYES: No scleral icterus. No conjunctival pallor. ENT: Moist mucosal membranes. No oropharyngeal erythema or exudates. NECK: Supple, nontender. Trachea is midline. RESPIRATORY: Accessory muscles of breathing are not active. Chest wall movements are symmetric bilaterally. Lungs are clear to auscultation without wheeze, rhonchi, or crepitations. CARDIOVASCULAR: S1 and S2 are heard, regular. Peripheral pulses are palpable. ABDOMEN: Soft, nontender. Bowel sounds are heard. NEUROLOGIC: The patient has expressive aphasia. Cranial nerves 2 through 12 are intact. No focal sensory deficits. Deep tendon reflexes are 2+. Plantars are downgoing bilaterally. MUSCULOSKELETAL: Power is 5/5 in all 4 extremities. SKIN: No rashes. LYMPHATIC: No cervical lymphadenopathy. PSYCHIATRIC: Normal mood and normal affect. The patient is oriented to person and place, not to time. LABORATORY DATA: Mr. Conner's labs and investigations were reviewed. I reviewed his chest x-ray, which does not show any pulmonary infiltrates. I also reviewed his electrocardiogram, which shows normal sinus rhythm, no ST changes to suggest an acute coronary syndrome. He has normal white count, normal hemoglobin, normal platelet count, INR 0.9, normal comprehensive metabolic profile, elevated creatine kinase of 267, normal troponin I, normal urinalysis, and urine toxicology screen positive for phencyclidine, cocaine, and cannabinoids. ASSESSMENT AND PLAN: Mr. Conner is a pleasant 39-year-old gentleman, who was seen at [facility] on August 09, 2019. His problem list includes: 1. Expressive aphasia: Mr. Conner is presenting with expressive aphasia. He had a CT scan, noncontrast, of the brain without any acute intracranial abnormality. CT angiogram of [place] of [place] and neck also did not show any hemodynamically significant stenosis. He will be started on aspirin and statin, and admitted to the stroke floor for stroke workup. Neurology Service will be consulted. I am ordering MRI of the brain and 2D echocardiogram. 2. Chest pain: The patient presented with chest pain as one of his initial complaints. I will recheck his troponin I and order stress test for risk stratification. 3. Rhabdomyolysis: Mild. Provide IV hydration and recheck CK level. 4. Recreational drug use: The patient has been counseled regarding cessation of recreational drug use. 5. Tobacco use: The patient has been counseled regarding cessation of tobacco. I will start him on nicotine patch. 6. Daily alcohol use: Start ASE protocol. Many thanks for allowing me to participate in Mr. Conner's care. Please feel free to contact me with any questions or concerns. LEVEL OF RISK: High. LEVEL OF COMPLEXITY: High. Job ID: [id number]
[2019-08-09] MEDS: Atorvastatin Calcium 40 MG TAB PO SCH (21:18)
[2019-08-09] MEDS: Acetaminophen 325 MG TAB PO PRN (21:20)
[2019-08-10 04:47] LABS: #Basophils 0.1 thou/uL (0.0-0.2); #Eosinphils 0.4 thou/uL (0.0-0.7); #Lymphocytes 1.9 thou/uL (1.20-3.40); #Monocytes 0.6 thou/uL (0.11-0.59); #Neutrophils 2.8 thou/uL (1.40-6.50); %Basophils 1.2 % (0.0-1.0); %Eosinophils 7.4 % (0.0-10.0); %Lymphocytes 32.3 % (21.0-51.0); %Monocytes 10.5 % (0.0-10.0); %Neutrophils 48.7 % (42.0-75.0); Hemoglobin 14.2 g/dL (14.0-18.0); Mean Corpuscular HGB CONC 34.8 g/dL (32.0-36.0); Mean Corpuscular Hemoglobin 32.4 pg (27.0-31.0); Mean Corpuscular Volume 93.1 fL (78.0-98.0); Mean Platelet Volume 7.8 fL (7.4-10.4); Platelet Count 226 thou/uL (130-400); RBC Distribution Width 12.7 % (11.5-14.5); Red Blood Cell (RBC) Count 4.38 mill/uL (4.70-6.10); White Blood Cell (WBC) Count 5.7 thou/uL (4.8-10.8)
[2019-08-10 05:10] LABS: Anion Gap 8 mmol/L (10-20); BUN (Urea Nitrogen) 13 mg/dL (8.9-20.6); CK (CPK) 160 U/L (30-200); Calc. Creatinine Clearance 112 mL/min (70-130); Calcium 8.8 mg/dL (7.8-10.44); Carbon Dioxide 23 mmol/L (22-29); Cardiac Risk 2.1 (Less than 4.5); Chloride 111 mmol/L (98-107); Cholesterol 139 mg/dl (< 200 Desired); Estimated GFR-MDRD Greater than 90; Glucose 93 mg/dL (70-105); HDL Cholesterol 65 mg/dL (>60 Neg Risk); LDL Cholesterol, Calculated 63 mg/dL; Sodium 138 mmol/L (136-145); Triglycerides 55 mg/dL (Less than 150)
[2019-08-10] MEDS: Aspirin 325 mg Enteric Coated Tablet PO SCH (08:20)
[2019-08-10] MEDS: Sodium Chloride 0.9% 1,000 ML IV SCH (08:33)
[2019-08-10] MEDS ORDERED: Enoxaparin Sodium 40 MG/0.4 ML SYRINGE SC SCH (09:00)
--- NOTE | 2019-08-10 11:48 | CON ---
NEUROLOGY CONSULTATION DATE OF CONSULTATION: 08/10/2019 REASON FOR CONSULTATION: Expressive aphasia, rule out stroke. HISTORY OF PRESENT ILLNESS: Mr. Conner is a 39-year-old male who was seen at [facility] on July 30, 2019, with complaint of left-sided chest pain, which is sharp and radiates to the jaw. He also reported that over the last few days, he had left facial numbness and difficulty speaking. He was unable to get words out appropriately. The patient denies any focal weakness, nausea, vomiting, headache, vertigo, focal paresthesias, loss of vision, blurred vision, loss of consciousness, involuntary abnormal movements, abdominal pain associated with the episode. He does have history of chest pain and admits to using cocaine, PCP, and marijuana. REVIEW OF SYSTEMS: All 14 systems were reviewed and were negative except the pertinent positives and negatives mentioned in the HPI. PAST MEDICAL HISTORY: Not significant. PAST SURGICAL HISTORY: Left ankle and hand surgery. SOCIAL HISTORY: The patient smokes 1 pack a day. He drinks 2 to 3 beers a day and admits to using cocaine, PCP, and marijuana. FAMILY HISTORY: Denies family history of premature coronary artery disease or stroke. ALLERGIES: NO KNOWN DRUG ALLERGIES. CURRENT MEDICATIONS: He does not take any medications at home. PHYSICAL EXAMINATION: VITAL SIGNS: Blood pressure 120/90, pulse 80, and respiratory rate 18. HEENT: Normocephalic, atraumatic. NECK: Supple. CHEST: Clear. CVS: Regular rate and rhythm. ABDOMEN: Soft. NEUROLOGICAL: Mental status; the patient is alert and oriented to person, place , and time. He does have expressive aphasia and mild dysarthria. Cranial nerves II through XII intact except decreased sensation to pinprick in V1, V2, and V3 distribution on the left. Reflexes are symmetric bilaterally. Toes are downgoing bilaterally. Motor; muscle tone and bulk are normal. Strength 5/5 bilaterally. Sensory, withdraws to pinprick bilaterally. Cerebellar intact. Gait deferred due to the patient's safety reasons. DATA REVIEW: I reviewed the CT scan, which did not reveal any acute intracranial process. I also reviewed the CT angiogram of the head and neck, which did not reveal any hemodynamically significant stenosis. ASSESSMENT AND PLAN: Mr. Shahriar Conner is a 39-year-old male, who presented with chest pain and expressive aphasia. He does have risk factors of stroke including cocaine and nicotine abuse. A brain CT reviewed, which was negative for acute intracranial pathology. CT angiogram of the head and neck reviewed, which was negative for hemodynamically-significant stenosis. Recommend MRI to rule out acute intracranial process. Recommend echocardiography to rule out cardioembolic source. Telemetry to rule out arrhythmias. Neuro checks every 4 hours. Aspirin and statin for high-intensity statin for secondary stroke prevention. Lipid panel reviewed. Consider checking hemoglobin A1c and TSH. Strict control of blood glucose. Permissive blood pressure control at this time. Continue medical management per PT/OT. Speech evaluation for expressive aphasia. DVT prophylaxis. Continue supportive measures. Continue medical management per Primary Team. Consider Cardiology input regarding chest pain. We will continue to follow. The patient counseled about stroke risk factors, treatment and counseled on nicotine and illegal drug abuse. Thank you for the consult. Job ID: [id number]
[2019-08-10] MEDS: Nicotine 21 MG PATCH TD SCH (12:26)
--- NOTE | 2019-08-10 16:12 | MRI ---
MRI BRAIN WITHOUT CONTRAST: HISTORY: Left-sided facial numbness CORRELATION: CT scan from 08/09/2019. FINDINGS: No restricted diffusion is seen. There are few foci of T2 prolongation in the periventricular white m atter, consistent with mild chronic small vessel ischemic disease. The ventricular size is appropriate and the basilar cisterns are patent. No evidence of acute infarct, hemorrhage, midline shift or abnormal extra-axial fluid collections is seen. There is mucosal disease in the paranasal sinuses. There is a 17 mm cyst in the right parietal scalp at the level of the vertex. IMPRESSION: No evidence of acute intracranial process.
--- NOTE | 2019-08-10 18:18 | PDOC.HOSPP ---
- Subjective Encounter Date: 08/10/19 Encounter Time: 18:16 Subjective: Pt seen for followup re: aphasia. Aphasia has improved. Denies chest pain at this time. - Objective Vital Signs & Weight: Vital Signs (12 hours) Temp Pulse Pulse Resp BP BP BP 08/10/19 15:20 115/77 08/10/19 15:14 97.8 F 62 16 115/77 08/10/19 14:01 68 121/80 08/10/19 13:22 120/81 08/10/19 11:26 97.5 F L 61 18 120/81 08/10/19 09:00 98.5 F 56 L 16 123/83 08/10/19 08:00 97.9 F 59 L 16 123/83 123/83 Pulse Ox 08/10/19 15:20 08/10/19 15:14 99 08/10/19 14:01 08/10/19 13:22 08/10/19 11:26 99 08/10/19 09:00 99 08/10/19 08:00 99 Weight Weight 146 lb 1 oz I&O: 08/09/19 08/10/19 08/11/19 06:59 06:59 06:59 Intake Total 300 480 Balance 300 480 Result Diagrams: 08/10/19 04:23 08/10/19 04:23 Additional Labs: Labs and MARs reviewed by me EKG Reviewed by me: Yes (Tele: AV block) Hospitalist ROS - Review of Systems Respiratory: reports: other. denies: cough, shortness of breath, SOB with excertion, pleuritic pain, wheezing Cardiovascular: denies: chest pain, palpitations, orthopnea, paroxysmal noc. dyspnea, edema, light headedness Gastrointestinal: denies: nausea, vomiting, abdominal pain, diarrhea, constipation, melena, hematochezia Genitourinary: denies: dysuria, frequency, incontinence, hematuria, retention Skin: denies: rash, lesions, jeramy, bruising Neurological: reports: change in speech - Medication Medications: Active Medications Generic Name Dose Route Start Last Admin Trade Name Freq PRN Reason Stop Dose Admin Acetaminophen 650 mg 08/09/19 12:15 08/09/19 21:20 Tylenol PO 650 mg Q4H PRN Administration Headache/Fever/Mild Pain (1-3) Aspirin 325 mg 08/10/19 09:00 08/10/19 08:20 Ecotrin PO 325 mg DAILY CURTIS Administration Atorvastatin Calcium 40 mg 08/09/19 21:00 08/09/19 21:18 Lipitor PO 40 mg HS CURTIS Administration Enoxaparin Sodium 40 mg 08/10/19 09:00 08/10/19 08:20 Lovenox SC 08/10/19 21:00 40 mg 0900 CURTIS Administration Sodium Chloride 1,000 mls @ 70 mls/hr 08/09/19 18:15 08/10/19 08:33 Normal Saline 0.9% IV 1,000 mls .[id number] CURTIS Administration Nicotine 21 mg 08/09/19 13:00 08/10/19 12:26 Nicoderm Patch TD Not Given Q24HR CURTIS - Exam General Appearance: NAD Eye: anicteric sclera ENT: moist mucosa Neck: supple, symmetric, no thyromegaly, no lymphadenopathy Heart: RRR, no gallops, no rubs, normal peripheral pulses Respiratory: CTAB, no wheezes, no rales, no ronchi, normal chest expansion Gastrointestinal: soft, non-tender, non-distended, normal bowel sounds Extremities: no cyanosis Musculoskeletal: no muscle wasting Psychiatric: normal affect, normal behavior, oriented to person, oriented to place Hosp A/P (1) Aphasia Code(s): R47.01 - APHASIA Status: Acute (2) AV block Code(s): I44.30 - UNSPECIFIED ATRIOVENTRICULAR BLOCK Status: Acute (3) Chest pain Code(s): R07.9 - CHEST PAIN, UNSPECIFIED Status: Acute (4) Drug use disorder Code(s): F19.90 - OTHER PSYCHOACTIVE SUBSTANCE USE, UNSPECIFIED, UNCOMPLICATED Status: Chronic - Plan No CVA on MRI brain, symptoms improved, ? TIA (vs symptoms due to cocaine use). Awaiting cardiology input re; AV block. Appreciate neurology service input. Pt counseled re: cessation of recreational drugs. Continue aspirin and statin for now.
[2019-08-10] MEDS: Atorvastatin Calcium 40 MG TAB PO SCH (20:59)
[2019-08-10] MEDS: Acetaminophen 325 MG TAB PO PRN (22:02)
--- NOTE | 2019-08-10 23:02 | CON ---
DATE OF CONSULTATION: HISTORY OF PRESENT ILLNESS: Shahriar Conner is a 39-year-old black male with longstanding history of phencyclidine, marijuana and cocaine abuse. For the last two weeks, he has been having pain on the left side of his chest. The pain will occur at rest. It is pleuritic in nature and will last for hours. He also has noted tenderness to the area. He also had some left-sided facial numbness and mild aphasia and so came to the emergency room for further evaluation. PAST MEDICAL HISTORY: He denies any history of hypertension, diabetes, or hypercholesterolemia. PAST SURGICAL HISTORY: Left ankle surgery and left hand surgery. MEDICATIONS: None. ALLERGIES: NONE. SOCIAL HISTORY: He smokes 1 pack per day. He abuses marijuana, phencyclidine and cocaine, which all were present on his drug screen this admission. REVIEW OF SYSTEMS: A 10-point review of systems is otherwise unremarkable. VITAL SIGNS: Blood pressure 115/77, pulse 62. HEENT: PERRL. NECK: Supple. CHEST: Clear. CARDIAC: S1 and S2 normal without any S3, S4 or murmurs. Carotid upstroke is normal without bruits. ABDOMEN: Normal bowel sounds without tenderness or organomegaly. EXTREMITIES: Revealed no clubbing, cyanosis, or edema. NEUROLOGIC: Grossly intact, although the patient frequently falls asleep. HE states this is a chronic problem. MUSCULOSKELETAL: Reveals palpable left chest wall tenderness that seems to reproduce his pain. LABORATORY DATA: I do not see an EKG on the chart and one will be ordered. It is noted on the rhythm strip that he had a short episode of complete heart block with junctional escape rhythm of approximately 55 per minute. Hemoglobin 14.2, hematocrit 40.8, white count 5700, platelets 226,000. Sodium 138, potassium 4.0 , chloride 111, BUN 13, creatinine 0.82, cholesterol 139, triglycerides 55, LDL 63 , HDL 65. Cardiac enzymes are unremarkable. Echocardiogram revealed moderate left ventricular dysfunction with ejection fraction of 35% to 40%, mild mitral regurgitation and mild tricuspid regurgitation. IMPRESSION: 1. Atypical chest discomfort, most consistent with chest wall pain with pleuritic component as well as palpable tenderness. 2. Moderate left ventricular dysfunction of uncertain etiology. He certainly may have coronary artery disease, this could be due to viral or due to his constant drug abuse. 3. Complete heart block from which he appears to be completely asymptomatic. He denies any dizziness or lightheadedness. 4. Polysubstance abuse. PLAN: With his moderate left ventricular dysfunction, I feel that Mr. Conner should undergo cardiac catheterization. Risks were discussed with the patient and his was also on face time during our conversation. Risks of catheterization were discussed including , myocardial infarction, dye reaction, vascular injury, CVA, transfusion, limb loss, renal loss, etc. Risks of stenting were discussed including , myocardial infarction, emergent CABG, restenosis, stent thrombosis, vessel perforation, etc. With his lack of insurance and drug abuse history, I would only place a bare-metal stent, if required. Consideration should be given to low-dose JOVI inhibitor. beta- ping with his episode of complete heart block. I think if he continues to have more episodes of complete heart block, electrophysiology will be consulted because if he would need pacing, he would need biventricular pacing with his left ventricular dysfunction. Job ID: [id number]
[2019-08-11] MEDS: Sodium Chloride 0.9% 1,000 ML IV SCH ×3 (01:33→14:52)
[2019-08-11 04:44] LABS: #Eosinphils 0.5 thou/uL (0.0-0.7); #Lymphocytes 2.3 thou/uL (1.20-3.40); #Monocytes 0.8 thou/uL (0.11-0.59); #Neutrophils 3.6 thou/uL (1.40-6.50); %Basophils 0.6 % (0.0-1.0); %Eosinophils 6.5 % (0.0-10.0); %Lymphocytes 32.3 % (21.0-51.0); %Neutrophils 49.7 % (42.0-75.0); Hemoglobin 14.6 g/dL (14.0-18.0); Mean Corpuscular HGB CONC 32.7 g/dL (32.0-36.0); Mean Corpuscular Hemoglobin 30.7 pg (27.0-31.0); Mean Corpuscular Volume 93.7 fL (78.0-98.0); Mean Platelet Volume 7.8 fL (7.4-10.4); Platelet Count 229 thou/uL (130-400); RBC Distribution Width 12.7 % (11.5-14.5); Red Blood Cell (RBC) Count 4.77 mill/uL (4.70-6.10); White Blood Cell (WBC) Count 7.1 thou/uL (4.8-10.8)
[2019-08-11 04:52] LABS: Anion Gap 7 mmol/L (10-20); BUN (Urea Nitrogen) 15 mg/dL (8.9-20.6); Calc. Creatinine Clearance 118 mL/min (70-130); Calcium 8.8 mg/dL (7.8-10.44); Carbon Dioxide 26 mmol/L (22-29); Chloride 110 mmol/L (98-107); Estimated GFR-MDRD Greater than 90; Glucose 83 mg/dL (70-105); Potassium 3.9 mmol/L (3.5-5.1); Sodium 139 mmol/L (136-145)
[2019-08-11] MEDS ORDERED: Sodium Chloride 0.9% 1,000 ML IV SCH (06:00)
[2019-08-11] MEDS ORDERED: Heparin 10,000 UNITS/1 ML VIAL ONE (07:25)
[2019-08-11] MEDS ORDERED: Midazolam HCl 2 mg/2 ml Vial ONE (08:26)
[2019-08-11] MEDS ORDERED: Fentanyl 100 MCG/2 ML VIAL ONE (08:26)
[2019-08-11] MEDS ORDERED: Protamine Sulfate 50 MG/5 ML VIAL ONE (08:44)
[2019-08-11] MEDS ORDERED: Iopamidol 370 76% 50 ML VIAL FS ONE (08:46)
[2019-08-11] MEDS ORDERED: Iopamidol 370 76% 100 ML VIAL ONE (08:46)
[2019-08-11] MEDS ORDERED: Nitroglycerin 0.4 MG TAB (25 Tab Bottle) SL PRN (09:01)
[2019-08-11] MEDS ORDERED: Sodium Chloride 0.9% 200 ML IV PRN (09:01)
[2019-08-11] MEDS ORDERED: Acetaminophen/Codeine 30-300mg Tablet PO PRN ×2 (09:01)
[2019-08-11] MEDS: Aspirin 325 mg Enteric Coated Tablet PO SCH (09:45)
[2019-08-11] MEDS ORDERED: Lisinopril 5 MG TAB PO SCH (09:45)
[2019-08-11] MEDS ORDERED: Lisinopril 2.5 MG TAB PO SCH (10:15)
--- NOTE | 2019-08-11 11:56 | PDOC.HOSPP ---
- Subjective Encounter Date: 08/11/19 Subjective: NEUROLOGY PROGRESS NOTE Patient aphasia improved and denies any focal weakness or numbness. He is alert and oriented x 3. No acute events overnight. - Objective Vital Signs & Weight: Vital Signs (12 hours) Temp Pulse Resp BP BP BP Pulse Ox 08/11/19 11:24 97.8 F 63 16 110/72 99 08/11/19 09:16 97.5 F L 64 16 115/75 115/75 98 08/11/19 07:39 98.6 F 52 L 16 110/71 97 08/11/19 07:14 99 08/11/19 04:23 97.5 F L 65 18 119/79 99 08/11/19 04:00 119/79 08/11/19 00:00 124/62 Weight Weight 146 lb 1 oz I&O: 08/10/19 08/11/19 08/12/19 06:59 06:59 06:59 Intake Total 300 480 Balance 300 480 Result Diagrams: 08/11/19 04:21 08/11/19 04:21 Radiology Reviewed by me: Yes EKG Reviewed by me: Yes Hospitalist ROS - Review of Systems Constitutional: denies: fever, chills, sweats, weakness, malaise, other Eyes: denies: pain, vision change, conjunctivae inflammation, eyelid inflammation, redness, other ENT: denies: ear pain, ear discharge, nose pain, nose discharge, nose congestion , mouth pain, mouth swelling, throat pain, throat swelling, other Respiratory: denies: cough, dry, shortness of breath, hemoptysis, SOB with excertion, pleuritic pain, sputum, wheezing, other Cardiovascular: reports: chest pain, palpitations. denies: orthopnea, paroxysmal noc. dyspnea, edema, light headedness, other Gastrointestinal: denies: nausea, vomiting, abdominal pain, diarrhea, constipation, melena, hematochezia, other Genitourinary: denies: dysuria, frequency, incontinence, hematuria, retention, other Musculoskeletal: denies: neck pain, shoulder pain, arm pain, back pain, hand pain, leg pain, foot pain, other Skin: denies: rash, lesions, jeramy, bruising, other Neurological: reports: change in speech. denies: weakness, numbness, incoordination, confusion, seizures, other - Medication Medications: Active Medications Generic Name Dose Route Start Last Admin Trade Name Mosheq PRN Reason Stop Dose Admin Acetaminophen 650 mg 08/09/19 12:15 08/10/19 22:02 Tylenol PO 650 mg Q4H PRN Administration Headache/Fever/Mild Pain (1-3) Sodium Chloride 1,000 mls @ 125 mls/hr 08/11/19 09:02 08/11/19 09:46 Normal Saline 0.9% IV 08/11/19 15:00 1,000 mls .Q8H CURTIS Administration Lisinopril 2.5 mg 08/11/19 10:15 08/11/19 10:22 Zestril PO 08/11/19 12:00 2.5 mg NOW CURTIS Administration Nicotine 21 mg 08/09/19 13:00 08/10/19 12:26 Nicoderm Patch TD Not Given Q24HR CURTIS - Exam General Appearance: awake alert Eye: PERRL ENT: normocephalic atraumatic, no oropharyngeal lesions, moist mucosa Neck: supple Heart: RRR Respiratory: CTAB Gastrointestinal: soft Extremities: no cyanosis, no clubbing, no edema Skin: normal turgor, no lesions, no rashes Neurological: cranial nerve grossly intact, normal sensation to touch, no weakness, no focal deficits, no new deficit, speech deficit Musculoskeletal: normal tone, normal strength, no muscle wasting Psychiatric: normal affect, normal behavior, A&O x 3 Hosp A/P (1) Aphasia Code(s): R47.01 - APHASIA Status: Acute (2) AV block Code(s): I44.30 - UNSPECIFIED ATRIOVENTRICULAR BLOCK Status: Acute (3) Chest pain Code(s): R07.9 - CHEST PAIN, UNSPECIFIED Status: Acute (4) Drug use disorder Code(s): F19.90 - OTHER PSYCHOACTIVE SUBSTANCE USE, UNSPECIFIED, UNCOMPLICATED Status: Chronic (5) Polysubstance abuse Code(s): F19.10 - OTHER PSYCHOACTIVE SUBSTANCE ABUSE, UNCOMPLICATED Status: Acute - Plan plan discussed w/ family, speech therapy 39 year old male with history significant for cocaine abuse presented with aphasia and chest pain. Most likely TIA due to cocaine abuse. MRI brain reviewed which was negative for acute intracranial pathology. Echo showed LVEF 35-40% AV block- Cardiology on board.. Counseled regarding cessation of recreational drugs. Neurochecks every 4 hours. Aspirin and high intensity statin for secondary stroke prevention. Continue home medications. PT/OT/Speech Telemetry. Strict control of BP and BG. Continue medical management per primary team. Plan discussed in detail with the patient and the family member
[2019-08-11] MEDS: Nicotine 21 MG PATCH TD SCH (13:11)
--- NOTE | 2019-08-11 15:44 | PDOC.HOSPP ---
- Subjective Encounter Date: 08/11/19 Encounter Time: 07:20 Subjective: Pt seen for followup re: aphasia. Feels better today. No chest pain. - Objective Vital Signs & Weight: Vital Signs (12 hours) Temp Pulse Resp BP BP BP Pulse Ox 08/11/19 11:24 97.8 F 63 16 110/72 99 08/11/19 09:16 97.5 F L 64 16 115/75 115/75 98 08/11/19 07:39 98.6 F 52 L 16 110/71 97 08/11/19 07:14 99 08/11/19 04:23 97.5 F L 65 18 119/79 99 08/11/19 04:00 119/79 Weight Weight 146 lb 1 oz I&O: 08/10/19 08/11/19 08/12/19 06:59 06:59 06:59 Intake Total 300 480 Output Total 650 Balance 300 480 -650 Result Diagrams: 08/11/19 04:21 08/11/19 04:21 Additional Labs: Labs and MARs reviewed by me EKG Reviewed by me: Yes (Tele: NSR) Hospitalist ROS - Review of Systems Cardiovascular: denies: chest pain, palpitations, orthopnea, paroxysmal noc. dyspnea Gastrointestinal: denies: nausea, vomiting, abdominal pain, diarrhea, constipation, hematochezia Skin: denies: rash, lesions, jeramy, bruising - Medication Medications: Active Medications Generic Name Dose Route Start Last Admin Trade Name Freq PRN Reason Stop Dose Admin Acetaminophen 650 mg 08/09/19 12:15 08/10/19 22:02 Tylenol PO 650 mg Q4H PRN Administration Headache/Fever/Mild Pain (1-3) Nicotine 21 mg 08/09/19 13:00 08/11/19 13:11 Nicoderm Patch TD 21 mg Q24HR CURTIS Administration - Exam General Appearance: awake alert Eye: anicteric sclera ENT: normocephalic atraumatic Neck: supple Heart: RRR Respiratory: CTAB Gastrointestinal: soft, non-tender Extremities: no cyanosis Skin: no rashes Psychiatric: normal affect, normal behavior Hosp A/P (1) Aphasia Code(s): R47.01 - APHASIA Status: Acute (2) AV block Code(s): I44.30 - UNSPECIFIED ATRIOVENTRICULAR BLOCK Status: Acute (3) Drug use disorder Code(s): F19.90 - OTHER PSYCHOACTIVE SUBSTANCE USE, UNSPECIFIED, UNCOMPLICATED Status: Chronic (4) Chest pain Code(s): R07.9 - CHEST PAIN, UNSPECIFIED Status: Resolved - Plan TIA vs aphasia due to cocaine use Normal coronaries on cath Await EP input Pt counseled re: cessation of recreational drugs.
--- NOTE | 2019-08-11 17:44 | EKG ---
Test Reason : Blood Pressure : / mmHG Vent. Rate : 060 BPM Atrial Rate : 060 BPM P-R Int : 138 ms QRS Dur : 096 ms QT Int : 408 ms P-R-T Axes : 039 078 046 degrees QTc Int : 408 ms Normal sinus rhythm Early repolarization Normal ECG When compared with ECG of 09-AUG-2019 09:29, (Unconfirmed) No significant change was found Confirmed by DR. Froilan MURPHY ([id number]) on 08/11/2019 5:44:34 PM Referred By: TIARRA Confirmed By:DR. Froilan MURPHY
[2019-08-12 04:56] LABS: #Basophils 0.1 thou/uL (0.0-0.2); #Eosinphils 0.4 thou/uL (0.0-0.7); #Lymphocytes 2.3 thou/uL (1.20-3.40); #Monocytes 0.7 thou/uL (0.11-0.59); #Neutrophils 3.4 thou/uL (1.40-6.50); %Basophils 0.9 % (0.0-1.0); %Eosinophils 5.9 % (0.0-10.0); %Lymphocytes 33.7 % (21.0-51.0); %Monocytes 10.2 % (0.0-10.0); %Neutrophils 49.3 % (42.0-75.0); Mean Corpuscular HGB CONC 33.1 g/dL (32.0-36.0); Mean Corpuscular Hemoglobin 30.9 pg (27.0-31.0); Mean Corpuscular Volume 93.3 fL (78.0-98.0); Mean Platelet Volume 8.1 fL (7.4-10.4); Platelet Count 212 thou/uL (130-400); RBC Distribution Width 12.7 % (11.5-14.5); White Blood Cell (WBC) Count 6.9 thou/uL (4.8-10.8)
[2019-08-12 05:14] LABS: Anion Gap 9 mmol/L (10-20); BUN (Urea Nitrogen) 12 mg/dL (8.9-20.6); Calc. Creatinine Clearance 120 mL/min (70-130); Calcium 8.5 mg/dL (7.8-10.44); Carbon Dioxide 22 mmol/L (22-29); Chloride 112 mmol/L (98-107); Estimated GFR-MDRD Greater than 90; Glucose 81 mg/dL (70-105); Sodium 139 mmol/L (136-145)
[2019-08-12] MEDS ORDERED: Lisinopril 2.5 MG TAB PO SCH (09:00)
--- NOTE | 2019-08-12 09:54 | PDOC.EP ---
- Subjective Date: 08/12/19 Time: 09:52 Interval History: follow up for evaluation of AV block and consideration of PPM. Patient feels fair and voices to complaints. - Review of Systems Constitutional: denies: chills, fever, sweats, weakness Respiratory: denies: cough, shortness of breath, wheezing Cardiology: denies: chest pain, heart racing, light headedness, palpitations, passing out Gastrointestinal: denies: abdominal pain, constipation, diarrhea - Objective Allergies/Adverse Reactions: Allergies Allergy/AdvReac Type Severity Reaction Status Date / Time No Known Drug Allergies Allergy Verified 05/17/19 16:26 Current Medications Acetaminophen (Tylenol) 650 mg PO Q4H PRN PRN Reason: Headache/Fever/Mild Pain (1-3) Last Admin: 08/10/19 22:02 Dose: 650 mg Acetaminophen/Codeine Phosphate (Tylenol #3) 1 tab PO Q4H PRN PRN Reason: Mild Pain (1-3) Last Admin: 08/11/19 18:15 Dose: 1 tab Acetaminophen/Codeine Phosphate (Tylenol #3) 2 tab PO Q4H PRN PRN Reason: Moderate Pain (4-6) Last Admin: 08/11/19 22:33 Dose: 2 tab Hydralazine HCl (Apresoline) 10 mg SLOW IVP Q4H PRN PRN Reason: BP > 220/110 Lisinopril (Zestril) 2.5 mg PO DAILY [facility] Last Admin: 08/12/19 09:44 Dose: 2.5 mg Nicotine (Nicoderm Patch) 21 mg TD Q24HR [facility] Last Admin: 08/11/19 13:11 Dose: 21 mg Nitroglycerin (Nitrostat) 0.4 mg SL Q5MIN PRN PRN Reason: Chest Pain Ondansetron HCl (Zofran) 4 mg IVP Q6H PRN PRN Reason: Nausea/Vomiting Sodium Chloride (Flush - Normal Saline) 10 ml IVF PRN PRN PRN Reason: Saline Flush Last Admin: 08/12/19 09:45 Dose: 10 ml Vital Signs & Weight: Vital Signs Temp Pulse Resp BP BP BP Pulse Ox 08/12/19 09:44 73 08/12/19 07:45 97.4 F L 69 17 93/61 95 08/12/19 07:05 64 18 109/78 99 08/12/19 06:28 98 08/12/19 04:00 98.1 F 66 16 113/60 113/60 98 08/12/19 00:11 97.6 F 72 18 114/62 99 08/12/19 00:00 114/62 Weight 146 lb 1 oz I/O: I/O 08/11/19 08/12/19 08/13/19 06:59 06:59 06:59 Intake Total 480 3434 Output Total 650 Balance 480 2784 - Physical Exam General: alert & oriented x3, appears well, speech clear HEENT: mucus membranes moist, normocephaly Neck: supple neck, midline trachea, no lymphadenopathy Cardiology: regular rate and rhythm, PMI nondisplaced Lungs: clear to auscultation, normal breath sounds, no wheeze, rales, rhonchi Neurology: cranial nerve 2-12 intact, grossly intact, no lateralizing findings Abdomen: unremarkable, active bowel sounds, no pulsations/bruits - Labs Result Diagrams: 08/12/19 04:37 08/12/19 04:37 - EKG Interpretation EKG Method: Telemetry EKG shows: Sinus rhythm, Sinus bradycardia - Assessment/Plan Assessment/Plan: 1. Mobitz second degree type 1 - transient progression into advanced heart block, asymptomatic. Narrow QRS 2. Multi substance abuse 3. Cardiomyopathy, moderate LV dysfunction 4. Atypical chest pain No definite indication for PPM or ICD at this time. No recurrences of Second degree Mobitz type 1 or advanced AVB. SR/mild sinus everardo 55-65bpm. If further evaluation is requested do not hesitate to contact me. Thank you. EP signing off.
[2019-08-12 11:29] VITALS: BP 101/75; TEMP 97.5
--- NOTE | 2019-08-12 11:31 | CON ---
DATE OF CONSULTATION: 08/11/2019 REASON FOR CONSULTATION: AV block, consideration of pacemaker versus ICD. Consultation performed by Dr. Garrick Roa. HISTORY OF PRESENT ILLNESS: Mr. Conner is a 39-year-old male with a history of phencyclidine, marijuana, and cocaine abuse. He had been having pleuritic left-sided chest pain, ongoing for 2 weeks. There was associated palpable tenderness provoking this and is thought to be atypical. He also had some associated left-sided facial numbness and aphasia, prompting his presentation in the emergency room for further evaluation. Since that time, on telemetry and EKG, he has been seen to have a rhythm strip that was concerning for complete heart block, prompting EP consultation. He was asymptomatic during this occurrence without any lightheadedness, dizziness, or syncope. REVIEW OF SYSTEMS: Mr. Conner denies any heart racing, palpitations, chest pain, pressure, syncope, near syncope, stroke, or stroke-like symptoms. Positive for atypical chest pain as described above. Otherwise, 12-point review of systems is negative. PAST MEDICAL HISTORY: 1. Long-standing history of drug abuse, phencyclidine, marijuana, and cocaine. 2. Tobacco habituation. 3. Left ankle surgery and left hand surgery. MEDICATIONS: None. ALLERGIES: NO KNOWN DRUG ALLERGIES. SOCIAL HISTORY: Positive for ongoing tobacco use as well as marijuana, phencyclidine, and cocaine, all confirmed with his drug screen on this admission. FAMILY HISTORY: The patient cannot recall, did not feel this is positive for sudden cardiac or early-onset CAD. OBJECTIVE: VITAL SIGNS: Temperature 97.9, pulse 61, blood pressure 126/85, respirations 18, and oxygen is 99% on room air. GENERAL: The patient is alert and oriented. Speech is clear. Affect is appropriate. He is in no apparent distress. NECK: Supple without jugular venous distention. His trachea is midline. There is no lymphadenopathy. HEART: Rate is regularly regular with a crisp S1 and S2. Absent murmurs. PMI nondisplaced. LUNGS: Clear to auscultation bilaterally without adventitious lung sounds. ABDOMEN: Soft and nontender without palpable masses. EXTREMITIES: Warm and dry to touch. Well perfused without clubbing, cyanosis, or edema. DATABASE: Telemetry and EKG show sinus rhythm, ventricular rate in the 60s. QRS is narrow at 96 milliseconds. QT and QTc are stable with no evidence of prolongation. There is a telemetry strip that shows a Mobitz type 1, transitioning into a transient advanced heart block, which he was asymptomatic with a narrow QRS. This is an isolated occurrence. No recurrence has been seen. Echocardiogram performed on 08/10/2019, shows an ejection fraction of 35% to 40%, mild mitral regurgitation, mild tricuspid regurgitation, normal atrial size noted bilaterally. IMPRESSION: 1. Paroxysmal high grade AV block with a Mobitz second-degree type 1 to transient third-degree, likely vasovagal in origin and asymptomatic, narrow QRS. 2. Nonischemic cardiomyopathy with a moderately reduced ejection fraction of 35% to 40%. 3. Chronic multisubstance abuse, positive for cocaine. 4. Borderline hypertension. PLAN AND RECOMMENDATIONS: I had a discussion with Mr. Conner about the AV block that has been seen in the transient advanced AV block. He is asymptomatic with this. His QRS is narrow. At this point, there is no definite indication for an ICD or pacemaker. I would recommend continued monitoring, but largely refraining from further drug abuse would be most beneficial for him. Thank you for allowing me to participate in care of this patient. Job ID: [id number]
--- NOTE | 2019-08-12 11:37 | PDOC.HOSPP ---
- Subjective Encounter Date: 08/12/19 Subjective: NEUROLOGY PROGRESS NOTE No acute events overnight. Aphasia improved, No focal deficits. Cardiac cath negative. - Objective Vital Signs & Weight: Vital Signs (12 hours) Temp Pulse Resp BP BP BP Pulse Ox 08/12/19 11:27 97.5 F L 51 L 18 101/75 100 08/12/19 09:44 73 08/12/19 07:45 97.4 F L 69 17 93/61 95 08/12/19 07:05 64 18 109/78 99 08/12/19 06:28 98 08/12/19 04:00 98.1 F 66 16 113/60 113/60 98 08/12/19 00:11 97.6 F 72 18 114/62 99 08/12/19 00:00 114/62 Weight Weight 146 lb 1 oz I&O: 08/11/19 08/12/19 08/13/19 06:59 06:59 06:59 Intake Total 480 3434 Output Total 650 Balance 480 2784 Result Diagrams: 08/12/19 04:37 08/12/19 04:37 Radiology Reviewed by me: Yes EKG Reviewed by me: Yes Hospitalist ROS - Review of Systems Constitutional: denies: fever, chills, sweats, weakness, malaise, other Eyes: denies: pain, vision change, conjunctivae inflammation, eyelid inflammation, redness, other ENT: denies: ear pain, ear discharge, nose pain, nose discharge, nose congestion , mouth pain, mouth swelling, throat pain, throat swelling, other Respiratory: denies: cough, dry, shortness of breath, hemoptysis, SOB with excertion, pleuritic pain, sputum, wheezing, other Cardiovascular: reports: chest pain, palpitations, light headedness. denies: orthopnea, paroxysmal noc. dyspnea, edema, other Gastrointestinal: denies: nausea, vomiting, abdominal pain, diarrhea, constipation, melena, hematochezia, other Genitourinary: denies: dysuria, frequency, incontinence, hematuria, retention, other Musculoskeletal: denies: neck pain, shoulder pain, arm pain, back pain, hand pain, leg pain, foot pain, other Skin: denies: rash, lesions, jeramy, bruising, other Neurological: reports: change in speech. denies: weakness, numbness, incoordination, confusion, seizures, other - Medication Medications: Active Medications Generic Name Dose Route Start Last Admin Trade Name Freq PRN Reason Stop Dose Admin Acetaminophen 650 mg 08/09/19 12:15 08/10/19 22:02 Tylenol PO 650 mg Q4H PRN Administration Headache/Fever/Mild Pain (1-3) Acetaminophen/Codeine Phosphate 1 tab 08/11/19 09:01 08/11/19 18:15 Tylenol #3 PO 1 tab Q4H PRN Administration Mild Pain (1-3) Acetaminophen/Codeine Phosphate 2 tab 08/11/19 09:01 08/11/19 22:33 Tylenol #3 PO 2 tab Q4H PRN Administration Moderate Pain (4-6) Lisinopril 2.5 mg 08/12/19 09:00 08/12/19 09:44 Zestril PO 2.5 mg DAILY CURTIS Administration Nicotine 21 mg 08/09/19 13:00 08/11/19 13:11 Nicoderm Patch TD 21 mg Q24HR CURTIS Administration Sodium Chloride 10 ml 08/09/19 12:15 08/12/19 09:45 Flush - Normal Saline IVF 10 ml PRN PRN Administration Saline Flush - Exam General Appearance: awake alert Eye: PERRL ENT: normocephalic atraumatic Neck: supple Heart: RRR Respiratory: CTAB Gastrointestinal: soft Extremities: no cyanosis Skin: normal turgor Neurological: cranial nerve grossly intact, normal sensation to touch, no weakness, no focal deficits, speech deficit Musculoskeletal: normal tone, normal strength, no muscle wasting Psychiatric: normal affect, normal behavior, A&O x 3, oriented to person, oriented to place, oriented to time Hosp A/P (1) Aphasia Code(s): R47.01 - APHASIA Status: Acute (2) AV block Code(s): I44.30 - UNSPECIFIED ATRIOVENTRICULAR BLOCK Status: Acute (3) Chest pain Code(s): R07.9 - CHEST PAIN, UNSPECIFIED Status: Resolved (4) Drug use disorder Code(s): F19.90 - OTHER PSYCHOACTIVE SUBSTANCE USE, UNSPECIFIED, UNCOMPLICATED Status: Chronic (5) Polysubstance abuse Code(s): F19.10 - OTHER PSYCHOACTIVE SUBSTANCE ABUSE, UNCOMPLICATED Status: Acute - Plan speech therapy 39 year old male with history significant for cocaine abuse presented with aphasia and chest pain. Most likely TIA due to cocaine abuse. Mobitz second degree type 1 with Cardiomyopathy, moderate LV dysfunction and atypical chest pain. Electrophysiology on board. No indication for PPM or ICD at this time per electrophysiology. MRI brain reviewed which was negative for acute intracranial pathology. 2 D Echo showed LVEF 35-40% AV block- Cardiology on board.. Counseled regarding cessation of recreational drugs. Neurochecks every 4 hours. Aspirin and high intensity statin for secondary stroke prevention. Continue home medications. PT/OT/Speech Telemetry. Strict control of BP and BG. Continue medical management per primary team. Plan discussed in detail with the patient . Awaiting discharge.
[2019-08-12] MEDS ORDERED: Aspirin 81 mg Enteric Coated Tablet PO SCH (13:00)
[2019-08-12] MEDS: Nicotine 21 MG PATCH TD SCH (13:41)
[2019-08-12] MEDS ORDERED: Atorvastatin Calcium 40 MG TAB PO SCH (21:00)
--- NOTE | 2019-08-13 03:35 | DIS ---
DATE OF ADMISSION: 08/09/2019 DATE OF DISCHARGE: 08/12/2019 PRIMARY CARE PROVIDER: Unknown. DISCHARGE DIAGNOSES: 1. Transient ischemic attack. 2. Aphasia. 3. Atrioventricular block. 4. Polysubstance abuse. 5. Cardiomyopathy, nonischemic. CONDITION OF PATIENT ON THE DAY OF DISCHARGE: Stable. I assessed Mr. Conner on the day of discharge. He denies any chest pain or shortness of breath. Vital signs are stable. S1 and S2 are heard, regular. Lungs are clear to auscultation bilaterally. CONSULTATIONS DURING THIS HOSPITALIZATION: 1. Cardiology, Dr. Medina. 2. Neurology, Dr. Whitmore. 3. Electrophysiology, Dr. Roa. DISCHARGE MEDICATIONS: 1. Nicotine 21 mg patch daily. 2. Aspirin 81 mg daily. 3. Lipitor 40 mg at bedtime. 4. Lisinopril 2.5 mg daily. DIET: Heart healthy diet. ACTIVITY: No restrictions. POST ACUTE CARE FOLLOWUP: With primary care provider in 3 days and with Cardiology Service in 2 weeks. HOSPITAL COURSE: Mr. Conner is a pleasant 39-year-old gentleman who was admitted to [facility] on August 09, 2019 for chest pain and aphasia. Please refer to my history and physical note dated August 09, 2019 for further details. He was seen by Neurology and Cardiology Services. MRI of the brain did not show any acute intracranial process. CT angiogram of the brain and neck did not show any hemodynamically significant stenosis, occlusion or aneurysmal formation. He also had 2D echocardiogram, which showed left ventricular ejection fraction of 35% to 40%. Overall left ventricular function was moderately depressed. He had mild mitral regurgitation, and mild tricuspid regurgitation. He underwent cardiac catheterization, which showed normal coronaries and left ventricular ejection fraction of 35% to 40%. He was recommended Entresto by Cardiology Service, but the patient could not afford it. He has been started on lisinopril. He also developed a transient atrioventricular block. Beta ping was not started for that reason. He was seen by Electrophysiology Service. They did not see an indication for ICD or pacemaker at this time. He has been advised to stop tobacco and recreational drug use. Many thanks for allowing me to participate in your patient's care. Please feel free to contact me with any questions or concerns. DISCHARGE DESTINATION: Home. TIME SPENT: Total amount of time spent coordinating this discharge: 33 minutes. Job ID: [id number]
[2019-08-13] MEDS ORDERED: Aspirin 81 mg Enteric Coated Tablet PO SCH (09:00)
--- NOTE | 2019-08-14 13:06 | CT ---
EXAM: CT ANGIOGRAM OF THE HEAD AND NECK INDICATION: Stroke COMPARISON: None TECHNIQUE: CT angiogram of the head and neck are performed in the axial plane. Three-dimensional refo rmatted images are submitted for interpretation. FINDINGS: CTA OF THE HEAD WITH AND WITHOUT CONTRAST: POSTCONTRAST CT OF BRAIN: Pathologic enhancement: No pathologic enhancement the brain. Incidental sebaceous cyst in the right parietal scalp. Postcontrast soft tissue neck CT: Aerodigestive tract:Aerodigestive tract is patent. No mucosal abnormality. Sinuses: Mild mucosal thickening of the ethmoid air cells. Adequate mastoid air cell aeration. Orbits: Bilateral ocular lenses are appropriately located. Both globes are intact. Retrobulbar fat is preserved. Symmetric attenuation the optic nerves and ocular rectus muscles. Salivary glands:Symmetric attenuation Thyroid gland: Appropriate attenuation Lymph nodes: No evidence of lymphadenopathy by size criteria. Paraspinal muscles: Symmetric attenuation of the sternocleidomastoid muscles. Appropriate attenuation of the paraspinal muscles. Cervical spine:Vertebral body height is maintained. No fracture. No significant central canal stenosi s or significant neural foraminal narrowing. Limited evaluation by technique. Upper mediastinum and lung apices: No acute abnormality CTA OF THE NECK WITH CONTRAST: Aorta: Appropriate enhancement and luminal diameter Right carotid artery: Appropriate enhancement and luminal diameter of the origin of the right carotid artery, common carotid artery, carotid bifurcation and internal carotid artery. No significant stenosis based upon NASCET criteria Left carotid: Appropriate enhancement and luminal diameter the origin of the left common carotid elinor ry, common carotid artery, carotid bifurcation and internal carotid artery. No significant stenosis based on NASCET criteria Subclavian arteries:Patent Vertebral arteries:Patent throughout their course in the neck. Vertebral arteries are essentially cod ominant CTA OF THE BRAIN: Intracranial internal carotid arteries:Appropriate enhancement and luminal diameter Anterior circulation: Appropriate enhancement and luminal diameter the A1 segments, proximal A2 segme nts, M1 segments and proximal MCA branches Intracranial vertebral arteries: Appropriate enhancement and luminal diameter. Bilateral PICA artery origins have appropriate enhancement and luminal diameter Posterior circulation: Both vertebral arteries supply normal caliber basilar artery. Bilateral P1 seg ments have appropriate enhancement and luminal diameter IMPRESSION: 1. No hemodynamically significant stenosis, occlusion or aneurysmal formation. 2. Results of the study discussed with Dr. Mckay 08/09/2019 at 10:08 AM Code CR Transcribed Date/Time: 08/14/2019 1:05 PM
--- NOTE | 2019-08-15 14:25 | EKG ---
Test Reason : Blood Pressure : / mmHG Vent. Rate : 084 BPM Atrial Rate : 084 BPM P-R Int : 136 ms QRS Dur : 092 ms QT Int : 352 ms P-R-T Axes : 077 080 058 degrees QTc Int : 415 ms Normal sinus rhythm Normal ECG Confirmed by REGINALDO JARVIS M.D. ([id number]), web editor MARILYN VANCE ([id number]) on 08/15/2019 2:25:06 PM Referred By: Confirmed By:REGINALDO JARVIS M.D.
== END 2019-08-12 14:07 | disposition home or self-care (01) | DRG 918 ==
LOC: ERS 09:21 → 2SE 13:29
PROVIDERS: ADMIT Internal Medicine; ATTEND Internal Medicine
PROC: 4A023N7 Measurement of Cardiac Sampling and Pressure, Left Heart, Percutaneous Approach (ICD-10-PCS; principal; 2019-08-11)
PROC: B2151ZZ Fluoroscopy of Left Heart using Low Osmolar Contrast (ICD-10-PCS; 2019-08-11)
PROC: B2111ZZ Fluoroscopy of Multiple Coronary Arteries using Low Osmolar Contrast (ICD-10-PCS; 2019-08-11)
DX: T40.5X1A Poisoning by cocaine, accidental (unintentional), initial encounter (principal); G45.9 Transient cerebral ischemic attack, unspecified; M62.82 Rhabdomyolysis; R47.01 Aphasia; I44.2 Atrioventricular block, complete; I42.8 Other cardiomyopathies; I44.1 Atrioventricular block, second degree; F17.210 Nicotine dependence, cigarettes, uncomplicated; F14.10 Cocaine abuse, uncomplicated; F12.10 Cannabis abuse, uncomplicated; F16.10 Hallucinogen abuse, uncomplicated; R03.0 Elevated blood-pressure reading, without diagnosis of hypertension
CPT/HCPCS: 36415; 36416; 70450; 70496; 70498; 70551; 71045; 80048; 80053; 80061; 80306; 80307; 81003; 82550; 83690; 84484; 85025; 85347; 85610; 85730; 93005; 93010; 93306; 93458; 94760; 96374; 96375; 99152; J1644; J1650; J2250; J2720; J3010; Q9967